=== PATIENT | male | born 1995 | race Two or more races ===

== ENCOUNTER 2019-08-08 17:19 | Emergency (ER) | payer OTHER, MEDICAID ==
[~2019-08-08] VITALS: Ht 190.5 cm; Wt 108.9 kg
[2019-08-08 17:23] VITALS: BP 123/75
--- NOTE | 2019-08-08 17:30 | NUR ---
ED Nurse Note: patient walked into ED from home coughing and sorethroat for 4 days. patien is alert awake x4 ambulatory, breathing unlabored and even, speaking in full sentences.
--- NOTE | 2019-08-08 17:57 | NUR ---
ED Nurse Note: cxr taken at bedside.
--- NOTE | 2019-08-08 17:59 | Emergency Room Report ---
History of Present Illness General Chief Complaint: Upper Respiratory Illness Present Illness HPI 24-year-old male with no significant past medical history here complaining of 4 days of cough and shortness of breath. Denies any fever and chills, denies congestion sore throat. Denies recent travel. Reports that he often on and off smokes cigarettes however has not smoked any in the past few weeks. Denies any drug use or marijuana use. When asked how long he has felt sick he reports that he is not sick and only having a cough. Complains of posttussive chest pain. Reports that he has had a history of bronchitis and used to get prescribed Phenergan with codeine frequently. Patient reports that he went to an urgent care yesterday, was given prescription for Phenergan DM and inhaler however keeps insisting on needing something stronger to help her sleep and some pain medication. Drug-seeking behavior is been observed. Patient is stable with stable vital signs. Allergies: Coded Allergies: No Known Allergies (Unverified , 08/08/19) Patient History Past Medical History: see triage record Past Surgical History: none Pertinent Family History: none Social History: Reports: smoking Immunizations: UTD Reviewed Nursing Documentation: PMH: Agreed; PSxH: Agreed Nursing Documentation-PMH Past Medical History: No Stated History Review of Systems All Other Systems: negative except mentioned in HPI Physical Exam Vital Signs Date Time Temp Pulse Resp B/P (MAP) Pulse Ox O2 Delivery O2 Flow Rate FiO2 08/08/19 17:23 98.4 73 18 123/75 99 Room Air Sp02 EP Interpretation: reviewed, normal General Appearance: no apparent distress, alert, GCS 15, non-toxic Head: normocephalic, atraumatic Eyes: bilateral eye normal inspection, bilateral eye PERRL ENT: hearing grossly normal, normal pharynx, no angioedema, normal voice Neck: full range of motion, supple, no meningismus, supple/symm/no masses Respiratory: chest non-tender, lungs clear, normal breath sounds, no rhonchi, no retraction, no wheezing, speaking full sentences Cardiovascular #1: regular rate, rhythm, no edema, no murmur, normal capillary refill Gastrointestinal: non tender, soft Rectal: deferred Genitourinary: no CVA tenderness Musculoskeletal: back normal, normal range of motion, digits/nails normal, no calf tenderness, pelvis stable Neurologic: alert, motor strength/tone normal, oriented x3, sensory intact, responsive, speech normal Psychiatric: judgement/insight normal, memory normal, mood/affect normal, no suicidal/homicidal ideation Skin: no rash, warm/dry Lymphatic: no adenopathy Medical Decision Making PA Attestation All my diagnosis and treatment plans were reviewed ad discussed with my supervising physician Dr. Chandra Diagnostic Impression: Primary Impression: Pneumonitis ER Course 24-year-old male with no significant past medical history here complaining of 4 days of cough and shortness of breath. Denies any fever and chills, denies congestion sore throat. Denies recent travel. Reports that he often on and off smokes cigarettes however has not smoked any in the past few weeks. Denies any drug use or marijuana use. When asked how long he has felt sick he reports that he is not sick and only having a cough. Complains of posttussive chest pain. Reports that he has had a history of bronchitis and used to get prescribed Phenergan with codeine frequently. Patient reports that he went to an urgent care yesterday, was given prescription for Phenergan DM and inhaler however keeps insisting on needing something stronger to help her sleep and some pain medication. Drug-seeking behavior is been observed. Patient is stable with stable vital signs. Ddx considered but are not limited to: bronchitis, PNA, URI viral, bacterial bronchitis, pneumonitis Vital signs: are WNL, pt. is afebrile H&PE are most consistent with: Pneumonitis ORDERS: Chest x-ray, azithromycin, Phenergan DM, guaifenesin, albuterol ED INTERVENTIONS: None required at this time. DISCHARGE: At this time pt. is stable for d/c to home. Will provide printed patient care instructions, and any necessary prescriptions. Care plan and follow up instructions have been discussed with the patient prior to discharge. Advised patient to follow primary doctor given list of free clinics to go to outpatient Another primary doctor, after patient insisted on getting feeling of a codeine I advised him that this puts prescription cannot be prescribed here as it is not needed for the patient as patient is not a chronic smoker, does not have COPD, and lungs are clear to auscultation. I received a call at 10:30 PM from [facility] reporting that they do not have any Phenergan DM and the only have cough medication with codeine. I specified that patient does not need any codeine and can take any over-the- counter medication or anything with DM in it or take the Phenergan DM prescription to a different pharmacy. Patient also already has Phenergan DM at home. Appears to be that patient chose to go to [facility] even though reported earlier that patient no longer has [place] insurance as he knew that they may call in for substitution of codeine. This patient does not including drug-seeking behavior noted. Chest X-Ray Diagnostic Results Chest X-Ray Diagnostic Results : Chest X-Ray Ordered: Yes # of Views/Limited/Complete: 1 View Indication: Shortness of Breath EP Interpretation: Yes PA Xray: Interpretation reviewed, by supervising MD, and agrees with findings. Interpretation: no consolidation, no effusion, no pneumothorax Impression: No acute disease Electronically Signed by: Segun Woods PA-C Last Vital Signs Date Time Temp Pulse Resp B/P (MAP) Pulse Ox O2 Delivery O2 Flow Rate FiO2 08/08/19 17:45 73 18 Room Air 08/08/19 17:23 98.4 123/75 (91) 99 Disposition: HOME, SELF-CARE Condition: Stable Scripts Albuterol Sulfate (VENTOLIN HFA) 18 Gm Hfa.aer.ad 2 PUFFS INH EVERY 6 HOURS, #18 GM 0 Refills Prov: Segun Haile 08/08/19 Guaifenesin* (GUAIFENESIN*) 100 Mg/5 Ml Liquid 15 ML ORAL Q6H, #120 ML 0 Refills Prov: Segun Haile 08/08/19 D-Methorphan Hb/Prometh Hcl* (PROMETHAZINE-DM SYRUP*) 118 Ml Syrup 5 ML ORAL BEDTIME PRN for For Cough, #120 ML 0 Refills Prov: Segun Haile 08/08/19 Azithromycin* (ZITHROMAX*) 250 Mg Tablet 250 MG ORAL DAILY, #6 TAB 0 Refills Take two tables once daily for 1 day, then one tablet once daily for 4 days. Prov: Segun Haile 08/08/19 Patient Instructions: Pneumonitis Additional Instructions: Take medication as directed, follow-up with your primary care provider, increase oral hydration, avoid smoking tobacco, if worsening symptoms return to the emergency room Segun Haile Aug 08, 2019 17:59
[2019-08-08] MEDS ORDERED: GUAIFENESI100 MG/5 M ORAL (18:01)
[2019-08-08] MEDS ORDERED: PROMETHAZINE-D118 ML ORAL (18:01)
[2019-08-08] MEDS ORDERED: ZITHROMAX250 MG ORAL (18:01)
[2019-08-08] MEDS ORDERED: VENTOLIN HFA18 GM INH (18:01)
[2019-08-08 18:12] VITALS: BP 123/75
--- NOTE | 2019-08-08 18:12 | NUR ---
ER DISCHARGE NOTE: Patient is cleared to be discharged per CH[facility] AGUDELO, pt is aox4, on room air, with stable vital signs. pt was given dc and prescription instructions, pt was able to verbalize understanding, pt id band and iv site removed without complications. pt is able to ambulate with steady gait. pt took all belongings.
--- NOTE | 2019-08-09 10:32 | Diagnostic Imaging Report ---
Indication: Cough Comparison: None A single view chest radiograph was obtained. Findings: Cardiomediastinal appearance is within normal limits for age. The lungs are clear. Pulmonary vascularity is appropriate. The diaphragmatic contour is smooth and costophrenic angles are sharp. No pleural effusions are identified. The bones are unremarkable. Impression: No acute findings
== END 2019-08-08 18:12 | disposition home or self-care (01) ==
LOC: EMR 17:40
DX: J18.9 Pneumonia, unspecified organism (principal); F17.210 Nicotine dependence, cigarettes, uncomplicated
CPT/HCPCS: 71045; 99283